=== PATIENT | male | born 1965 | race Caucasian/White ===

== ENCOUNTER 2021-05-08 11:53 | Emergency (ER) | payer OTHER ==
[2021-05-08 12:11] VITALS: BP 138/75; PULSE 92; TEMP 98.5; BMI 24.3
[2021-05-08] MEDS ORDERED: FLUORESCEIN NA 1 EA STRIP ONE (12:34)
[2021-05-08] MEDS ORDERED: TETRACAINE 0.5% OPHTH SOLN 2 ML BOTTLE ONE (12:34)
== END 2021-05-08 14:33 | disposition home or self-care (01) ==
LOC: JERFT 11:53
DX: S05.02XA Injury of conjunctiva and corneal abrasion without foreign body, left eye, initial encounter (principal)
CPT/HCPCS: 99283-25